=== PATIENT | female | born 1965 ===

== ENCOUNTER 2024-07-24 09:53 | Outpatient (OUT) | payer MEDICARE, SELFPAY ==
--- NOTE | 2024-07-24 | XR_ITS ---
[address] [address] Patient Name: SIOBHAN RUBIN MRN: [id number] date: 1965 Sex: F Assigned Patient Location: Current Patient Location: Accession/Order Number: [id number] Exam Date: 07/24/2024 09:59 Report Date: 07/25/2024 14:21 At the request of: BRANDI JONES Procedure: XR shoulder RT min 2V PROCEDURE: XR shoulder RT min 2V HISTORY: RIGHT SHOULDER PAIN COMPARISON: XR shoulder right 07/13/2024 FINDINGS: BONES:Transverse fracture through surgical neck of right humerus with extension into the greater tuberosity. Anterior-inferior displacement of the humeral head in relation to the glenoid. SOFT TISSUES:No visible soft tissue swelling. EFFUSION:None visible. OTHER: Negative. XR/XR shoulder RT min 2V IMPRESSION: 1. Minimally displaced fracture of the surgical neck of the right humerus and of the greater tuberosity; grossly stable. 2. Anterior-inferior dislocation versus marked laxity of the humeral head resting upon the anterior-inferior margin of the glenoid. This has developed since the prior study. Electronically authenticated by: BRANDI RESTREPO Date: 07/25/2024 14:21
== END 2024-07-24 09:54 | disposition home or self-care (01) ==
LOC: EC 09:56
PROVIDERS: Visit Provider Orthopaedic Surgery
DX: M25.511 Pain in right shoulder (principal); S42.211D Unspecified displaced fracture of surgical neck of right humerus, subsequent encounter for fracture with routine healing
CPT/HCPCS: 73030

== ENCOUNTER 2024-08-21 09:12 | Outpatient (OUT) | payer MEDICARE, SELFPAY ==
--- NOTE | 2024-08-21 | XR_ITS ---
The [address] [address] Patient Name: SIOBHAN RUBIN MRN: [id number] date: 1965 Sex: F Assigned Patient Location: Current Patient Location: Accession/Order Number: [id number] Exam Date: 08/21/2024 09:13 Report Date: 08/23/2024 15:53 At the request of: BRANDI JONES Procedure: XR shoulder RT min 2V PROCEDURE: XR shoulder RT min 2V HISTORY: RIGHT SHOULDER PAIN COMPARISON: XR shoulder right 07/24/2024 FINDINGS: BONES:Comminuted fractures through proximal humeral neck and greater tuberosity. Low riding humeral head in relation to the glenoid suggesting rotator cuff disruption versus dislocation. The lateral view suggests the humeral head still remains in contact with the glenoid, but the frontal view suggests dislocation. SOFT TISSUES:No visible soft tissue swelling. EFFUSION:None visible. OTHER: Negative. XR/XR shoulder RT min 2V IMPRESSION: 1. Evidence of early osseous healing involving the comminuted proximal humerus fracture. 2. Inferior dislocation of the humeral head versus marked laxity of the joint. Electronically authenticated by: BRANDI RESTREPO Date: 08/23/2024 15:53
== END 2024-08-21 09:13 | disposition home or self-care (01) ==
LOC: EC 09:12
PROVIDERS: Visit Provider Orthopaedic Surgery
DX: S42.294D Other nondisplaced fracture of upper end of right humerus, subsequent encounter for fracture with routine healing (principal)
CPT/HCPCS: 73030

== ENCOUNTER 2024-09-18 10:13 | Outpatient (OUT) | payer MEDICARE, SELFPAY ==
--- NOTE | 2024-09-18 | XR_ITS ---
The [place] [address] Patient Name: SIOBHAN RUBIN MRN: [id number] date: 1965 Sex: F Assigned Patient Location: Current Patient Location: Accession/Order Number: [id number] Exam Date: 09/18/2024 16:47 Report Date: 09/18/2024 16:49 At the request of: BRANDI JONES MD Procedure: XR shoulder RT min 2V RIGHT SHOULDER - - 3 views CLINICAL HISTORY: Follow-up proximal humerus fracture COMPARISON: Right shoulder 08/21/2024 FINDINGS: Right humeral head/neck fracture grossly unchanged alignment with interval callus formation suggestive of healing response. There is enlargement of the subacromial space suggestive of underlying joint effusion or rotator cuff pathology similar to the prior study. XR/XR shoulder RT min 2V IMPRESSION: HEALING RIGHT HUMERAL HEAD/NECK FRACTURE. Impression dictated by: Edwin Steele Jr., D.OEdward09/18/2024 4:49 PM Dictation Location: [place] [address] Electronically authenticated by: [id number] Y Date: 09/18/2024 16:49
--- OUTSIDE RECORDS SUMMARY | 2024-09-18 10:22 | XMS_ITS | CCD ---
Author Organization [facility] Inform ion Partnership [facility] Care Team Providers Care Real Estate Underwriter Name Role Phone ALISON PINEDA Admitting Unavailable ALISON PINEDA Attending Unavailable ALISON PINEDA Consulting Unavailable Problems Problem Classification Problem Date Documented Da te Episodic/Chronic Essential hypertension (4 sources) Essential (primary) hypertension; Translations: [ESSENTIAL PRIMARY HYPERTENSION] Onset: 02-01-2020 Chronic Results Test Name Value Interpretation Reference Range Facil ity CBC AUTO DIFFon 02-01-2020 Basophils (Bld) [#/Vol] 0.1 103/ul Normal 0.0-0.1 [facility] Comment on above: Performed By: #### C BC #### [facility] [address] [place], [place] [phone] Toni Shari Basophils/100 WBC (Bld) 0.9 % Normal 0.2-2.0 [facility] Comment on above: Performed By: #### C BC #### [facility] [address] [place] [address] Toni Shari Eosinophils (Bld) [#/Vol] 0.3 103/ul Normal 0.0-0.7 [facility] Comment on above: Performed By: #### C BC #### [facility] [address] [place] [address] Toni Shari Eosinophils/100 WBC (Bld) 6.0 % Normal 0.9-7.0 [facility] Comment on above: Performed By: #### C BC #### [facility] [address] [place] [address] Toni Shari Erythrocyte distribution width (RBC) [Ratio] 13.1 % Normal 11.0-15.0 [facility] Comment on above: Performed By: #### C BC #### [facility] [address] [place] [address] Toni Shari Hematocrit (Bld) [Volume fraction] 42.1 % Normal 36.0-48.0 [facility] Comment on above: Performed By: #### C BC #### [facility] [address] [place] [address] Toni Mccarthy Hemoglobin (Bld) [Mass/Vol] 13.8 g/dL Normal 12.0-16.0 [facility] Comment on above: Performed By: #### C BC #### [facility] [address] [place] [address] Tonijack Mccarthy IG # 0.02 10e3/ul Normal 0.00-0.03 [facility] Comment on above: Performed By: #### C BC #### [facility] [address] [place] [address] Toni Mccarthy IG % 0.4 % Normal 0.0-0.5 [facility] Comment on above: Performed By: #### C BC #### [facility] [address] [place] [address] Toni Mccarthy Lymphocytes (Bld) [#/Vol] 1.9 103/ul Normal 1.2-3.8 [facility] Comment on above: Performed By: #### C BC #### [facility] [address] [place] [address] Toni Mccarthy Lymphocytes/100 WBC (Bld) 34.0 % Normal 20.5-60.0 [facility] Comment on above: Performed By: #### C BC #### [facility] [address] [place] [address] Toni Mccarthy MANUAL DIFF REQ NO Normal The [facility] Comment on above: Performed By: #### C BC #### [facility] [address] [place], [place] [phone] Toni Mccarthy MCH (RBC) [Entitic mass] 31.1 pg Normal 26.7-34.0 [facility] Comment on above: Performed By: #### C BC #### [facility] [address] [place] [address] Toni Mccarthy MCHC (RBC) [Mass/Vol] 32.8 g/dL Normal 29.9-35.2 [facility] Comment on above: Performed By: #### C BC #### [facility] [address] [place] [id number] Toni Shari MCV (RBC) [Entitic vol] 94.8 fL Normal 81.0-99.0 The [facility] Comment on above: Performed By: #### C BC #### [facility] [address] [place], [place] [phone] Toni Shari Monocytes (Bld) [#/Vol] 0.5 103/ul Normal 0.3-0.8 The [facility] Comment on above: Performed By: #### C BC #### [facility] [address] [place], [place] [phone] Toni Shari Monocytes/100 WBC (Bld) 9.6 % Normal 1.7-12.0 [facility] Comment on above: Performed By: #### C BC #### [facility] [address] [place], [place] [phone] Toni Shari Neutrophils (Bld) [#/Vol] 2.8 103/ul Normal 1.4-6.5 The [facility] Comment on above: Performed By: #### C BC #### [facility] [address] [place], [place] [phone] Toni Shari Neutrophils/100 WBC (Bld) 49.1 % Normal 43.0-75.0 [facility] Comment on above: Performed By: #### C BC #### [facility] [address] [place], [place] [phone] Toni Shari Platelet mean volume (Bld) [Entitic vol] 11.3 fL Normal 9.5-13.5 The [facility] Comment on above: Performed By: #### C BC #### [facility] [address] [place], [place] [phone] Toni Shari Platelets (Bld) [#/Vol] 163 103/ul Normal 150-450 The [facility] Comment on above: Performed By: #### C BC #### [facility] [address] [place], [place] [phone] Toni Shari RBC (Bld) [#/Vol] 4.44 106/ul Normal 4.20-5.40 The [facility] Comment on above: Performed By: #### C BC #### [facility] [address] [place] [phone] Tonijack Mccarthy WBC (Bld) [#/Vol] 5.6 103/ul Normal 4.0-11.0 [facility] Comment on above: Performed By: #### C BC #### [facility] [address] [place], [place] [phone] Tonijack Polancoen LIPID PROFILEon 02-01-2020 CHOL-HDL RATIO NORM SEE BELOW Normal [facility] Comment on above: Result Comment: 3.3 - 4.4 LOW RISK 4.4 - 7.1 AVERAGE RISK 7.1 - 11.0 MODERATE RISK >11.0 HIGH RISK Performed By: #### L IPID, CMP #### [facility] [address] [place] [address] Toni Shari Cholesterol [Mass/Vol] 228 mg/dL Critically high <=200 [facility] Comment on above: Performed By: #### L IPID, CMP #### [facility] [address] [place], [place] [phone] Toni Shari Cholesterol in HDL [Mass/Vol] > or = 60 mg/dl - LOW CARDIOVASCULAR RISK <40 mg/dl - HIGH CARDIOVASCULAR RISK Normal [facility] Comment on above: Performed By: #### L IPID, CMP #### [facility] [address] [place], [place] [phone] Toni Shari Cholesterol in HDL [Mass/Vol] 52 mg/dL Normal [facility] Comment on above: Performed By: #### L IPID, CMP #### [facility] [address] [place], [place] [phone] Toni Shari Cholesterol in LDL [Mass/Vol] SEE BELOW Normal [facility] Comment on above: Result Comment: <100 mg/dl OPTIMAL 100 - 129 mg/dl NEAR OR ABOVE OPTIMAL 130 - 159 mg/dl BORDERLINE HIGH 160 - 189 mg/dl HIGH >190 mg/dl VERY HIGH Performed By: #### L IPID, CMP #### [facility] [address] [place], [place] [address] Toni Shari Cholesterol in LDL [Mass/Vol] 162.6 mg/dL Normal [facility] Comment on above: Performed By: #### L IPID, CMP #### [facility] [address] [place], [place] [address] Toni Shari Cholesterol.total/C holesterol in HDL [Mass ratio] 4.4 {ratio} Normal [facility] Comment on above: Performed By: #### L IPID, CMP #### [facility] [address] [place], [place] [address] Toni Shari Triglyceride [Mass/Vol] 67 mg/dL Normal <=150 [facility] Comment on above: Performed By: #### L IPID, CMP #### [facility] [address] [place], [place] [address] Toni Shari VLDL CALC 13.4 mg/dL Normal [facility] Comment on above: Performed By: #### L IPID, CMP #### [facility] [address] [place], [place] [address] Toni Shari PROF 14(COMP METB)on 020 Albumin [Mass/Vol] 3.4 g/dL Critically low 3.5-5.0 Th e [facility] Comment on above: Performed By: #### L IPID, CMP #### [facility] [address] [place], [place] [address] Toni Shari Albumin/Globulin [Mass ratio] 1.0 {ratio} Normal [facility] Comment on above: Performed By: #### L IPID, CMP #### [facility] [address] [place], [place] [address] Toni Shari ALP [Catalytic activity/Vol] 140 U/L Critically high 38-126 [facility] Comment on above: Performed By: #### L IPID, CMP #### [facility] [address] [place], [place] [address] Toni Shari ALT [Catalytic activity/Vol] 14 U/L Normal 9-52 [facility] Comment on above: Performed By: #### L IPID, CMP #### [facility] [address] [place] [phone] Toni Shari Anion gap [Moles/Vol] 10.9 mmol/L Normal [facility] Comment on above: Performed By: #### L IPID, CMP #### [facility] [address] [place] [phone] Toni Shari AST [Catalytic activity/Vol] 15 U/L Normal 14-36 The [facility] Comment on above: Performed By: #### L IPID, CMP #### [facility] [address] [place] [id number] Toni Shari Bilirubin Ql (U) 0.3 mg/dL Normal 0.2-1.3 The [facility] Comment on above: Performed By: #### L IPID, CMP #### [facility] [address] [place] [address] Toni Shari Calcium [Mass/Vol] 8.3 mg/dL Critically low 8.4-10.2 Th [facility] Comment on above: Performed By: #### L IPID, CMP #### [facility] [address] [place] [address] Toni Shari Chloride [Moles/Vol] 105 mmol/L Normal 98-107 The [facility] Comment on above: Performed By: #### L IPID, CMP #### [facility] [address] [place] [address] Toni Shari CO2 [Moles/Vol] 27.9 mmol/L Normal 22.0-30.0 The [facility] Comment on above: Performed By: #### L IPID, CMP #### [facility] [address] [place] [address] Toni Shari Creatinine [Mass/Vol] 0.73 mg/dL Normal 0.52-1.04 [facility] Comment on above: Performed By: #### L IPID, CMP #### [facility] [address] [place] [id number] Toni Shari EGFR-AF [place] >60 Normal >=60 The [facility] Comment on above: Performed By: #### L IPID, CMP #### [facility] [address] [place] [id number] Toni Shari EGFR-NON AF [place] >60 Normal >=60 [facility] Comment on above: Performed By: #### L IPID, CMP #### [facility] [address] [place] [phone] Toni Shari Globulin (S) [Mass/Vol] 3.4 g/dL Normal [facility] Comment on above: Performed By: #### L IPID, CMP #### [facility] [address] [place] [address] Toni Shari Glucose [Mass/Vol] 85 mg/dL Normal 74-106 [facility] Comment on above: Performed By: #### L IPID, CMP #### [facility] [address] [place] [address] Toni Shari Potassium [Moles/Vol] 3.8 mmol/L Normal 3.4-5.0 [facility] Comment on above: Performed By: #### L IPID, CMP #### [facility] [address] [place] [address] Toni Shari Protein [Mass/Vol] 6.8 g/dL Normal 6.1-8.2 [facility] Comment on above: Performed By: #### L IPID, CMP #### [facility] [address] [place] [address] Toni Shari Sodium [Moles/Vol] 140 mmol/L Normal 137-145 [facility] Comment on above: Performed By: #### L IPID, CMP #### [facility] [address] [place] [address] Toni Shari Urea nitrogen [Mass/Vol] 12.0 mg/dL Normal 7.0-17.0 [facility] Comment on above: Performed By: #### L IPID, CMP #### [facility] [address] [place] [address] Toni Shari Urea nitrogen/Creatinine [Mass ratio] 16.4 mg/mg Normal [facility] Comment on above: Performed By: #### L IPID, CMP #### [facility] [address] [place], [place] [address] Toni Mccarthy Encounters Encounter Date Encounter Type Care Provider Facility Start: 02-01-2020 End: 02-01-2020 Patient encounter procedure ALISON PINEDA Facility:[facility] Payers Date Payer Category Payer Unknown [id number] 1961 Unknown [id number] Summary Purpose Family History No Family History Records Found Advance Directives No Advanced Directives Records Found Additional Source Comments INFORMATION SOURCE (unrecogn ized section and content) DATE CREATED AUTHOR 02/09/2020 [facility] FOR RECORDS PERTAINING TO PATIENTS WHO ARE OR HAVE BEEN ENROLLED IN A CHEMICAL DEPENDENCY/SUBSTANCEABUSE PROGRAM, SOME INFORMATION MAY BE OMITTED. This clinical summary was aggregated from multiple sources. Caution should be exercised in using it in the provision of clinical care. This summary normalizes information from multiple sources, and as a consequence, information in this document may materially change the coding, format and clinical context of patient data. In addition, data may be omitted in some cases. CLINICAL DECISIONS SHOULD BE BASED ON THE PRIMARY CLINICAL RECORDS. [facility] [employer] provides no warranty or guarantee of the accuracy or completeness of information in this document.
== END 2024-09-18 10:14 | disposition home or self-care (01) ==
LOC: EC 10:13
PROVIDERS: Visit Provider Orthopaedic Surgery
DX: S42.294D Other nondisplaced fracture of upper end of right humerus, subsequent encounter for fracture with routine healing (principal)
CPT/HCPCS: 73030